=== PATIENT | male | born 2000 | race African-American/Black ===

== ENCOUNTER 2024-09-17 20:44 | Emergency (ER) | payer SELFPAY ==
[~2024-09-17] VITALS: Ht 190.5 cm; Wt 102.0 kg
[2024-09-17 20:46] VITALS: TEMP 36.8; O2SAT 99
[2024-09-17 22:37] VITALS: BP 121/61; PULSE 69; RESP 19
[2024-09-17] MEDS: IBUPROFEN 600MG TABLET PO ONE (22:37)
[2024-09-17] MEDS ORDERED: IBUP-2028 MT (22:59)
[2024-09-17] MEDS ORDERED: ACET-2708 MT (23:00)
== END 2024-09-18 00:33 | disposition home or self-care (01) ==
LOC: ER 20:44
DX: M25.561 Pain in right knee (principal); Z79.899 Other long term (current) drug therapy; W01.0XXA Fall on same level from slipping, tripping and stumbling without subsequent striking against object, initial encounter; Y93.89 Activity, other specified; Y92.89 Other specified places as the place of occurrence of the external cause; Y99.8 Other external cause status
CPT/HCPCS: 73502; 73562; 99284